=== PATIENT | male | born 1955 | race Asian ===

== ENCOUNTER 2022-03-20 16:44 | Emergency (ER) | payer SELFPAY ==
[~2022-03-20] VITALS: Ht 182.9 cm; Wt 75.0 kg
[2022-03-20] MEDS ORDERED: IBUPROFEN 600MG TABLET PO ONE (19:15)
[2022-03-20] MEDS ORDERED: ACETAMINOPHEN 325MG TABLET PO ONE (19:15)
[2022-03-20 20:25] VITALS: BP 95/56
[2022-03-20] MEDS ORDERED: IBUP-2029 MT (20:25)
[2022-03-20] MEDS ORDERED: MUPI1OIN4 TP (20:25)
== END 2022-03-20 20:55 | disposition home or self-care (01) ==
LOC: ER 16:44
DX: S70.02XA Contusion of left hip, initial encounter (principal); R10.30 Lower abdominal pain, unspecified; W18.30XA Fall on same level, unspecified, initial encounter; Y93.89 Activity, other specified; Y92.89 Other specified places as the place of occurrence of the external cause; Y99.8 Other external cause status
CPT/HCPCS: 72100; 73522; 99284